=== PATIENT | female | born 1950 | race Two or more races ===

== ENCOUNTER 2020-08-21 06:43 | Day surgery (SDC) | payer OTHER | END 2020-08-21 12:20 | disposition home or self-care (01) | LOC: AMB-ENDOS 06:43 | PROVIDERS: ATTEND Surgery | DX: C18.0 Malignant neoplasm of cecum (principal); D12.0 Benign neoplasm of cecum; Z20.822 Contact with and (suspected) exposure to COVID-19 ==

== ENCOUNTER 2020-09-03 10:30 | Inpatient (IN) | payer OTHER ==
[~2020-09-03] VITALS: Ht 152.4 cm; Wt 65.8 kg
[2020-09-03] MEDS ORDERED: SYNTHROID125 MCG PO (14:16)
[2020-09-03] MEDS ORDERED: INDERAL LA120 MG PO (14:16)
[2020-09-03] MEDS ORDERED: NORVASC10 MG PO (14:16)
[2020-09-03] MEDS ORDERED: HYDRALAZINE HCL25 MG PO (14:16)
[2020-09-03] MEDS ORDERED: TRADJENTA5 MG PO (14:17)
[2020-09-03] MEDS ORDERED: PLAVIX75 MG PO (14:17)
[2020-09-03] MEDS ORDERED: ATACAND32 MG PO (14:17)
[2020-09-03] MEDS ORDERED: LIPITOR40 MG PO (14:17)
[2020-09-03] MEDS ORDERED: VITAL-D RX TAB1 EACH PO (14:18)
== END 2020-09-09 12:22 | disposition home or self-care (01) | DRG 331 ==
LOC: O/R 09-06 09:28 → SURH 09-06 09:28
PROVIDERS: ADMIT Surgery; ATTEND Surgery
PROC: 07BC4ZX Excision of Pelvis Lymphatic, Percutaneous Endoscopic Approach, Diagnostic (ICD-10-PCS; 2020-09-06)
PROC: 0DTF4ZZ Resection of Right Large Intestine, Percutaneous Endoscopic Approach (ICD-10-PCS; principal; 2020-09-06 10:45)
DX: C18.2 Malignant neoplasm of ascending colon (principal); E03.8 Other specified hypothyroidism; E11.22 Type 2 diabetes mellitus with diabetic chronic kidney disease; N18.32 Chronic kidney disease, stage 3b; J44.9 Chronic obstructive pulmonary disease, unspecified; I13.10 Hypertensive heart and chronic kidney disease without heart failure, with stage 1 through stage 4 chronic kidney disease, or unspecified chronic kidney disease; Z79.4 Long term (current) use of insulin; D12.2 Benign neoplasm of ascending colon; F17.200 Nicotine dependence, unspecified, uncomplicated

== ENCOUNTER 2020-10-08 08:31 | Day surgery (SDC) | payer OTHER ==
[~2020-10-08 08:31] MED LIST: ATACAND32 MG PO; HYDRALAZINE HCL25 MG PO; INDERAL LA120 MG PO; LIPITOR40 MG PO; NORVASC10 MG PO; PLAVIX75 MG PO; SYNTHROID125 MCG PO; TRADJENTA5 MG PO; VITAL-D RX TAB1 EACH PO
[2020-10-08] MEDS ORDERED: ULTRACET PO (11:05)
== END 2020-10-08 14:00 | disposition home or self-care (01) ==
LOC: CIR.AMB 08:31
PROVIDERS: ATTEND Surgery
DX: C18.8 Malignant neoplasm of overlapping sites of colon (principal); Z20.822 Contact with and (suspected) exposure to COVID-19
CPT/HCPCS: 36561; C1751

== ENCOUNTER 2023-03-12 06:02 | Day surgery (SDC) | payer OTHER ==
[~2023-03-12 06:02] MED LIST changes: +ULTRACET PO
[2023-03-12] MEDS ORDERED: TRAM1TAB98 PO (10:21)
== END 2023-03-12 12:15 | disposition home or self-care (01) ==
LOC: CIR.AMB 06:02
PROVIDERS: ATTEND Surgery
DX: C18.0 Malignant neoplasm of cecum (principal); R10.31 Right lower quadrant pain; R93.5 Abnormal findings on diagnostic imaging of other abdominal regions, including retroperitoneum; R59.0 Localized enlarged lymph nodes; R97.0 Elevated carcinoembryonic antigen [CEA]; E03.9 Hypothyroidism, unspecified; E11.22 Type 2 diabetes mellitus with diabetic chronic kidney disease

== ENCOUNTER 2024-02-08 06:10 | Day surgery (SDC) | payer OTHER ==
[2024-02-04 10:14] LABS: HEMATOCRIT 37.8 % (36.0-45.00); HEMOGLOBIN 12.4 g/dL (12.0-15.00); MEAN CELL VOLUME 84.7 fL (80.00-100.00); MEAN CORPUSCULAR HEMOGLOBIN 27.8 pg (27.00-32.0); MEAN CORPUSCULAR HGB CONC 32.8 g/dl (32.0-36.0); PLATELET COUNT 328 K/uL (150-450); RED BLOOD COUNT 4.46 M/uL (4.00-6.00); RED CELL DISTRIBUTION WIDTH 17.6 % (11.5-14.5)
[2024-02-04 10:30] LABS: ALBUMIN 3.4 gm/dL (3.4-5.0); BILIRUBIN TOTAL 0.5 mg/dL (0.3-1.2); CALCIUM 9.7 mg/dL (8.5-10.1); CREATININE SERUM 1.13 mg/dL (0.55-1.02); GFR 47.2; GLOBULINA 4.8 G/DL (2.4-3.5); POTASSIUM 4.95 mEq/L (3.5-5.1); TOTAL PROTEIN 8.2 gm/dL (6.4-8.2)
[2024-02-04 10:36] LABS: INR 0.98; PARTIAL THROMBOPLASTIN TIME 28.4 SECONDS (22.0-34.0)
[2024-02-04 10:52] LABS: PROTHROMBIN TIME 10.3 SECONDS (9.0-11.5)
[~2024-02-08 06:10] MED LIST changes: +FARXIGA10 MG; +TRAM1TAB98 PO
[2024-02-08] MEDS ORDERED: CEFAZOLIN SODIUM 1,000 MG VIAL ONE (08:21)
[2024-02-08] MEDS ORDERED: BUPIVACAINE HCL/MPF 0.5% 30ML VIAL ONE (10:56)
[2024-02-08] MEDS ORDERED: LIDOCAINE HCL 1%/EPINEPHRINE 20ML VIAL IJ ONE (10:57)
[2024-02-08] MEDS ORDERED: HEPARIN SODIUM,PORCINE 500 UNITS/5 ML VIAL IV ONE (10:58)
[2024-02-08] MEDS ORDERED: LIDOCAINE HCL 1% 20ML VIAL IJ ONE (11:07)
[2024-02-08] MEDS ORDERED: TRAM1TAB98 PO (11:52)
== END 2024-02-08 13:40 | disposition home or self-care (01) ==
LOC: CIR.AMB 06:10
PROVIDERS: ATTEND Surgery
DX: C19 Malignant neoplasm of rectosigmoid junction (principal); E11.9 Type 2 diabetes mellitus without complications
CPT/HCPCS: 36561; C1751